=== PATIENT | male | born 1975 | race Caucasian/White ===

== ENCOUNTER 2022-07-21 23:35 | Inpatient (IN) | payer BC ==
[2022-07-21] MEDS ORDERED: ACETAMINOPHEN 1000 MG/100 ML BAG IVPB ONE (23:53)
[2022-07-22] MEDS ORDERED: ACETAMINOPHEN INJECTION 100 ML IVPB ONE (00:07)
[2022-07-22 01:01] LABS: HEMATOCRIT 44.6 % (35.4-49); HEMOGLOBIN 15.5 GM/dL (11.7-16.9); MCH 29.6 pg (25.7-33.7); MCHC 34.7 g/dl (32.0-35.9); MEAN CELL VOLUME 85.4 fl (80-96); MEAN PLT VOLUME 9.2 fl (7.5-11.1); PLATELET COUNT 139 10^3/uL (134-434); RBC 5.22 M/mm3 (4.00-5.60); RDW 12.5 % (11.9-15.9); WHITE BLOOD COUNT 5.7 K/mm3 (4.0-10.0)
[2022-07-22 01:18] LABS: POTASSIUM 3.7 mmol/L (3.5-5.1)
[2022-07-22 01:20] LABS: ALBUMIN 3.5 g/dl (3.4-5.0); CALCIUM 8.1 mg/dL (8.5-10.1)
[2022-07-22 01:21] LABS: BLOOD UREA NITROGEN 14.6 mg/dL (7-18)
[2022-07-22 01:23] LABS: CREATININE 1.2 mg/dL (0.55-1.3)
[2022-07-22 01:25] LABS: BILIRUBIN,TOTAL 0.5 mg/dL (0.2-1); TOT PROT 6.5 g/dl (6.4-8.2)
[2022-07-22] MEDS ORDERED: DEXAMETHASONE SOD PHOSPHATE 10 MG/1 ML VIAL ONE ×2 (01:51→09:18)
[2022-07-22 03:33] LABS: ANISOCYTOSIS 1+; MACROCYTOSIS 0
[2022-07-22] MEDS ORDERED: guaiFENesin 200 MG/10 ML 10 ML UNIT-DOSE CUPS PO PRN (03:39)
[2022-07-22] MEDS ORDERED: SODIUM CHLORIDE 1,000 ML IV SCH (03:45)
[2022-07-22] MEDS ORDERED: DEXAMETHASONE 4 MG TABLET (FP) ONE (03:45)
[2022-07-22] MEDS: SODIUM CHLORIDE 1,000 ML IV SCH (04:44)
[2022-07-22 05:00] LABS: BASO % 0.4 % (0-2.0); EOS % 0.6 % (0-4.5); HEMATOCRIT 47.4 % (35.4-49); HEMOGLOBIN 16.5 GM/dL (11.7-16.9); LYMPH % 7.5 % (8-40); MCHC 34.8 g/dl (32.0-35.9); MEAN CELL VOLUME 86.4 fl (80-96); MEAN PLT VOLUME 9.1 fl (7.5-11.1); MONO % 4.3 % (3.8-10.2); NEUT % 87.2 % (42.8-82.8); PLATELET COUNT 162 10^3/uL (134-434); RBC 5.49 M/mm3 (4.00-5.60); RDW 12.3 % (11.9-15.9); WHITE BLOOD COUNT 7.1 K/mm3 (4.0-10.0)
[2022-07-22] MEDS ORDERED: REMDESIVIR 200 MG in SODIUM CHLORIDE 250 ML IVPB ONE (05:00)
[2022-07-22] MEDS ORDERED: REMDESIVIR 100 MG in SODIUM CHLORIDE 250 ML IVPB SCH (05:00)
[2022-07-22 05:01] LABS: EPI CELLS 14 /uL (0-25.1); HYALINE CASTS 13 /uL (0-3.1); PH,URINE 5.5 (5.0-8.0); URINE APPEARANCE CLEAR; URINE BACTERIA 0 /uL (0-1359); URINE BILIRUBIN NEGATIVE (NEGATIVE); URINE COLOR YELLOW; URINE GLUCOSE (UA) NEGATIVE (NEGATIVE); URINE KETONE TRACE (NEGATIVE); URINE LEUK ESTERASE 1+ (NEGATIVE); URINE NITRITE NEGATIVE (NEGATIVE); URINE PROTEIN NEGATIVE (NEGATIVE); URINE RBC 12 /uL (0-23.9); URINE WBC 313 /uL (0-25.8)
[2022-07-22 05:07] LABS: INR 1.16 (0.83-1.09); PROTHROMBIN TIME (PATIENT) 13.4 SEC (9.7-13.0)
[2022-07-22] MEDS: ENOXAPARIN NA (PORCINE) 100 MG/1 ML DISP.SYRIN SQ SCH ×2 (05:19→16:07)
[2022-07-22] MEDS ORDERED: ENOXAPARIN NA (PORCINE) 100 MG/1 ML DISP.SYRIN SQ ONE (05:20)
[2022-07-22 05:26] LABS: POTASSIUM 4.6 mmol/L (3.5-5.1)
[2022-07-22 05:28] LABS: CALCIUM 8.8 mg/dL (8.5-10.1)
[2022-07-22 05:29] LABS: BLOOD UREA NITROGEN 15.4 mg/dL (7-18)
[2022-07-22 05:31] LABS: CREATININE 1.2 mg/dL (0.55-1.3)
[2022-07-22 05:33] LABS: BILIRUBIN,TOTAL 0.5 mg/dL (0.2-1); TOT PROT 7.6 g/dl (6.4-8.2)
[2022-07-22] MEDS: DEXAMETHASONE SOD PHOSPHATE 10 MG/1 ML VIAL IVPUSH SCH (09:26)
[2022-07-22] MEDS ORDERED: DEXAMETHASONE SOD PHOSPHATE 10 MG/1 ML VIAL IVPUSH SCH (10:00)
[2022-07-22 13:08] VITALS: BMI 30.4
[2022-07-23] MEDS ORDERED: REMDESIVIR 100 MG in SODIUM CHLORIDE 250 ML IVPB SCH ×2 (05:00→08:00)
[2022-07-23] MEDS: SODIUM CHLORIDE 1,000 ML IV SCH (05:31)
[2022-07-23] MEDS: ENOXAPARIN NA (PORCINE) 100 MG/1 ML DISP.SYRIN SQ SCH (05:34)
[2022-07-23 07:02] LABS: BASO % 0.1 % (0-2.0); HEMATOCRIT 43.9 % (35.4-49); HEMOGLOBIN 15.4 GM/dL (11.7-16.9); LYMPH % 14.7 % (8-40); MCH 30.1 pg (25.7-33.7); MEAN CELL VOLUME 86.1 fl (80-96); MEAN PLT VOLUME 9.2 fl (7.5-11.1); MONO % 9.4 % (3.8-10.2); NEUT % 75.8 % (42.8-82.8); PLATELET COUNT 178 10^3/uL (134-434); RBC 5.11 M/mm3 (4.00-5.60); RDW 12.8 % (11.9-15.9)
[2022-07-23 07:19] LABS: POTASSIUM 4.1 mmol/L (3.5-5.1)
[2022-07-23 07:26] LABS: CALCIUM 8.6 mg/dL (8.5-10.1)
[2022-07-23 07:27] LABS: BLOOD UREA NITROGEN 18.6 mg/dL (7-18)
[2022-07-23 07:30] LABS: CREATININE 0.9 mg/dL (0.55-1.3)
[2022-07-23] MEDS: DEXAMETHASONE SOD PHOSPHATE 10 MG/1 ML VIAL IVPUSH SCH (10:34)
[2022-07-23 14:58] VITALS: RESP 18
[2022-07-23 15:00] VITALS: BP 127/74; PULSE 70; TEMP 98.3
== END 2022-07-23 15:40 | disposition home or self-care (01) | DRG 178 ==
LOC: JER 23:35 → JERBED 07-22 01:47 → J7W 07-22 13:20
PROVIDERS: ADMIT Family Medicine; ATTEND Family Medicine
PROC: XW033E5 Introduction of Remdesivir Anti-infective into Peripheral Vein, Percutaneous Approach, New Technology Group 5 (ICD-10-PCS; principal; 2022-07-22)
PROC: 3E0333Z Introduction of Anti-inflammatory into Peripheral Vein, Percutaneous Approach (ICD-10-PCS; 2022-07-22)
DX: U07.1 COVID-19 (principal); J98.11 Atelectasis; R09.02 Hypoxemia; E78.5 Hyperlipidemia, unspecified; R50.9 Fever, unspecified
CPT/HCPCS: 0241U-QW; 36415; 71045-TC-FY; 80048; 80053; 81003; 84484; 85025; 85610; 87086; 93005; 93010; 99285-25; C9399; J1100